=== PATIENT | female | born 2000 | race Caucasian/White ===

== ENCOUNTER 2021-08-05 09:24 | Emergency (ER) | payer OTHER ==
[~2021-08-05] VITALS: Ht 157.5 cm; Wt 73.5 kg
[2021-08-05] MEDS ORDERED: MUCINEX600 MG PO (09:56)
[2021-08-05] MEDS ORDERED: ACETAMINOPHEN325 M1 PO (09:57)
== END 2021-08-05 12:48 | disposition home or self-care (01) ==
LOC: ED 09:24
DX: U07.1 COVID-19 (principal)
CPT/HCPCS: 99284; A9270; U0003

== ENCOUNTER 2022-01-15 07:51 | Emergency (ER) | payer OTHER ==
[~2022-01-15] VITALS: Ht 157.5 cm; Wt 73.5 kg
[~2022-01-15 07:51] MED LIST: ACETAMINOPHEN325 M1 PO; MUCINEX600 MG PO
[2022-01-16] MEDS ORDERED: AMOX TR-K CLV1 EAC1 PO (13:42)
== END 2022-01-15 10:53 | disposition home or self-care (01) ==
LOC: ED 07:51
DX: S51.851A Open bite of right forearm, initial encounter (principal); W54.0XXA Bitten by dog, initial encounter; Y99.0 Civilian activity done for income or pay
CPT/HCPCS: 64450; 73110; 90471; 90715; 99283-25

== ENCOUNTER 2022-01-16 11:00 | Emergency (ER) | payer OTHER ==
[~2022-01-16] VITALS: Ht 160 cm; Wt 78.3 kg
--- OUTSIDE RECORDS SUMMARY | 2022-01-16 11:08 | XMS ---
PreManage Notification: RYLIE MAYNARD Security Domestic Housekeeper Events No recent Security Events currently on file CRITERIA MET - [facility] - 2 Visits in 30 Days CARE PROVIDERS MICKY SHAH Physician Conservation Biology Professor Current PHONE: Unknown [place] has no Care Guidelines for this patient. E.Erica. VISIT COUNT (12 MO.) 3 [facility] TOTAL 3 NOTE: Visits indicate total known visits. ED/UCC VISIT TRACKING (12 MO.) 01/16/2022 11:00 [facility] TYPE: Emergency COMPLAINT: - FOLLOW UP PER DOCTOR 01/15/2022 07:51 [facility] TYPE: Emergency COMPLAINT: - ANIMAL BITE R ARM 08/05/2021 09:25 [facility] TYPE: Emergency COMPLAINT: - SOB, FEVER, FATIGUE, COUGH, SORE THROAT DIAGNOSES: - COVID-19 - COUGH, UNSPECIFIED - Cough, unspecified INPATIENT VISIT TRACKING (12 MO.) No inpatient visits to display in this time frame [email or web address]
[2022-01-16] MEDS ORDERED: AMOX TR-K CLV1 EAC1 PO (13:42)
== END 2022-01-16 14:16 | disposition home or self-care (01) ==
LOC: ED 11:00
DX: S51.851A Open bite of right forearm, initial encounter (principal); W54.0XXA Bitten by dog, initial encounter
CPT/HCPCS: 99283

== ENCOUNTER 2024-07-11 11:47 | Emergency (ER) | payer BC ==
[~2024-07-11] VITALS: Ht 160 cm; Wt 84.3 kg
[~2024-07-11 11:47] MED LIST changes: +AMOX TR-K CLV1 EAC1 PO
[2024-07-11] MEDS ORDERED: TRI-SPRINTEC1 EACH PO (12:00)
[2024-07-11 12:15] LABS: BILIRUBIN, URINE NEGATIVE (negative); BLOOD/HGB, URINE NEGATIVE (Negative); KETONE, URINE NEGATIVE (Negative); LEUK ESTERASE, URINE NEGATIVE (negative); NITRITE, URINE NEGATIVE (negative)
[2024-07-11] MEDS ORDERED: ondansetron HCL 4 MG/2 ML VIAL IV ONE (12:15)
[2024-07-11 12:27] LABS: EOSINOPHILS 1.5 % (0-6); HEMATOCRIT 39.1 % (35.0-50.0); HEMOGLOBIN 13.3 g/dL (12.0-18.0); LYMPHOCYTES 36.3 % (24-44); MCH 28.4 (27-36); MCHC 34.1 g/dl (30-36); MCV 83.3 fl (81-99); MONOCYTES 10.1 % (0-12); NEUTROPHILS 51.1 % (39-80); PLATELET COUNT 400 K/uL (140-440); RBC 4.69 M/ul (4.3-5.7); RDW 15.1 (10.5-15.0)
[2024-07-11 12:42] LABS: ALBUMIN 3.6 g/dL (3.4-5.0); ALBUMIN/GLOBULIN RATIO 0.86 (1.1-2.4); ANION GAP 11.7 (7-21); BILIRUBIN, TOTAL 0.2 ng/dL (0.2-1.0); BUN/CREATININE RATIO 9.78 (6.0-28.6); CALCIUM 9.7 mg/dL (8.5-10.1); CREATININE, SERUM 0.92 mg/dL (0.55-1.02); POTASSIUM 3.7 mmol/L (3.5-5.1); PROTEIN, TOTAL 7.8 g/dL (6.4-8.2)
[2024-07-11] MEDS ORDERED: LIDOCAINE & ANTACID 35 ML BTL PO ONE (12:45)
[2024-07-11] MEDS ORDERED: ONDANSETRON 4 MG TAB ODT SL ONE (12:45)
[2024-07-11] MEDS ORDERED: FAMOTIDINE 20 MG/ 2 ML VIAL IV ONE (13:15)
[2024-07-11] MEDS ORDERED: OMEPRAZOLE20 MG PO (13:33)
[2024-07-11] MEDS ORDERED: PEPCID20 MG PO (13:33)
[2024-07-11 13:45] VITALS: BP 121/82
== END 2024-07-11 13:46 | disposition home or self-care (01) ==
LOC: ED 11:47
PROVIDERS: Emergency Medicine
DX: R10.13 Epigastric pain (principal); Z79.899 Other long term (current) drug therapy
CPT/HCPCS: 36415; 76705; 80053; 81003; 83690; 84703; 85025; J2405